=== PATIENT | female | born 1985 | race Caucasian/White ===

== ENCOUNTER 2018-06-24 12:48 | Emergency (ER) | payer BC ==
--- NOTE | 2018-06-24 13:59 | UC ---
Dental HPI - HPI Summary HPI Summary: 32 yo female presents with right cheek swelling. She tells me that for the last week she has been having sinus congestion and cold symptoms. Two days ago noticed some mild swelling to her right cheek. She applied ice. The next morning the swelling was worse so she applied heat. Today the swelling has increased further prompting her visit to . She admits that she has "bad teeth ", but is not having any specific tooth pain. Has some mild right ear pain. She is able to eat and drink. Mild difficulty opening her mouth. Denies fever, chills, sore throat, SOB, chest pain. - History of Current Complaint Stated Complaint: SWOLLEN SIDE OF FACE Time Seen by Provider: 06/24/18 13:59 Hx Obtained From: Patient Onset/Duration: Gradual Onset Severity: Mild Pain Intensity: 4 Pain Scale Used: 0-10 Numeric - Allergies/Home Medications Allergies/Adverse Reactions: Allergies Allergy/AdvReac Type Severity Reaction Status Date / Time No Known Allergies Allergy Verified 06/24/18 14:02 Home Medications: Home Medications Acetaminophen TAB* [Tylenol TAB*] 650 mg PO Q4H PRN 06/24/18 [History Confirmed 06/24/18] Ibuprofen TAB* [Advil TAB*] 400 mg PO Q6H PRN 06/24/18 [History Confirmed ] Sertraline* [Zoloft*] 50 mg PO DAILY 06/24/18 [History Confirmed 06/24/18] busPIRone TAB* [Buspar TAB *] 15 mg PO BID 06/24/18 [History Confirmed 06/24/18] PMH/Surg Hx/FS Hx/Imm Hx Psychological History: Anxiety, Depression - Surgical History Surgical History: None - Family History Known Family History: Positive: None - Social History Occupation: Employed Full-time Lives: With Family Alcohol Use: Occasionally Substance Use Type: None Smoking Status (MU): Light Every Day Tobacco Smoker Type: Cigarettes Review of Systems Constitutional: Negative Skin: Negative Eyes: Negative ENT: Other - Right cheek swelling Respiratory: Negative Cardiovascular: Negative Musculoskeletal: Negative Neurological: Negative Psychological: Negative All Other Systems Reviewed And Are Negative: Yes Physical Exam - Summary Physical Exam Summary: GENERAL: NAD. WDWN. No pain distress. SKIN: No rashes, sores, lesions, or open wounds. HEENT: Head: Moderate edema at right cheek with TTP along mid mandible. 1.0cm area of fluctuance appreciated under the skin. No erythema, warmth, or induration. Eyes: EOM intact. Conjunctiva clear without inflammation or discharge. Ears: Hearing grossly normal. TMs intact, no bulging, erythema, or edema. Nose: Nasal mucosa pink and moist. NTTP maxillary and frontal sinus. Throat: Posterior oropharynx without exudates, erythema, or tonsillar enlargement. Uvula midline. NECK: Supple. Nontender. No lymphadenopathy. CHEST: CTAB. No r/r/w. No accessory muscle use. Breathing comfortably and in no distress. CV: RRR. Without m/r/g. Pulses intact. Cap refill <2seconds NEURO: Alert. PSYCH: Age appropriate behavior. Triage Information Reviewed: Yes Vital Signs: Vital Signs: Temp Pulse Resp BP Pulse Ox 98.1 F 70 16 166/94 97 06/24/18 13:57 06/24/18 13:57 06/24/18 13:57 06/24/18 13:57 06/24/18 13:57 Vital Signs Reviewed: Yes Dental: Positive: Gross Decay/Caries @ - Throughout, Dental Fracture @ - Tooth 4 , Abscess @ - Tooth 31, Cervical Lymphadenopathy - Anterior. Negative: Percussion Tenderness @, Cellulitis @, Bleeding Dental Complaint Course/Dx - Course Course Of Treatment: Suspect soft tissue vs dental abscess. Will treat with clindamycin, NSAIDs, and ice to the area. Strongly advised that if her symptoms do not improve or if she develops difficulty eating/drinking, fever, or new symptoms - should be further evaluated in the ED. Pt voiced understanding - Differential Dx/Diagnosis Provider Diagnoses: Right face soft tissue abscess Discharge - Sign-Out/Discharge Documenting (check all that apply): Patient Departure All imaging exams completed and their final reports reviewed: No Studies - Discharge Plan Condition: Stable Disposition: HOME Prescriptions: Clindamycin Cap(NF) [Clindamycin Cap 300 mg Cap(NF)] 300 mg PO TID #21 cap Patient Education Materials: Abscess (ED) Referrals: Krystle Vasquez MD [Primary Care Provider] - Additional Instructions: If you develop a fever, shortness of breath, chest pain, new or worsening symptoms - please call your PCP or go to the ED. Your blood pressure was high at todays visit. Please see your primary provider within 4 weeks for recheck and re-evaluation. 1) If you develop a fever, shortness of breath, trouble swallowing, or increased swelling - please go to the ER - Billing Disposition and Condition Condition: STABLE Disposition: Home
[2018-06-24 14:02] VITALS: BP 166/94
== END 2018-06-24 14:25 | disposition home or self-care (01) ==
LOC: UCEAST 12:48
DX: L02.01 Cutaneous abscess of face (principal); F32.9 Major depressive disorder, single episode, unspecified; F41.9 Anxiety disorder, unspecified; F17.200 Nicotine dependence, unspecified, uncomplicated; Z79.899 Other long term (current) drug therapy
CPT/HCPCS: 99212; G0463